=== PATIENT | female | born 1970 | race Hispanic/Latino ===

== ENCOUNTER → 2025-04-12 | Day surgery (SDC) | payer OTHER ==
[~2025-04-12] MED LIST: PROPOFOL IV EMULSION 10 MG/ML 20 ML VIAL ONE
[2025-04-12] MEDS: LACTATED RINGER'S 1,000 ML ONE (10:09)
[2025-04-12 11:29] VITALS: TEMP 97
[2025-04-12 11:50] VITALS: BP 138/90; PULSE 91; RESP 18; O2SAT 99
== END | disposition home or self-care (01) ==
LOC: OR 07:13
PROVIDERS: ATTEND Internal Medicine Gastroenterology
DX: Z12.11 Encounter for screening for malignant neoplasm of colon (principal); K63.5 Polyp of colon; E66.01 Morbid (severe) obesity due to excess calories; Z68.29 Body mass index [BMI] 29.0-29.9, adult
CPT/HCPCS: 36415; 45385; 84702; 93005; J2704; J7121; 45378